=== PATIENT | female | born 1960 | race Hispanic/Latino ===

== ENCOUNTER 2022-06-21 08:16 | Emergency (ER) | payer OTHER ==
[~2022-06-21] VITALS: Ht 152.4 cm; Wt 67.4 kg
[2022-06-21] VITALS (11 sets, daily range): BP systolic 134–159; BP diastolic 57–76
[2022-06-21] MEDS ORDERED: TRAMADOL HYDROC50 M1 PO (10:28)
== END 2022-06-21 10:52 | disposition home or self-care (01) | DRG 556 ==
LOC: ED 08:16
DX: M25.562 Pain in left knee (principal); M25.552 Pain in left hip; E11.9 Type 2 diabetes mellitus without complications; Z79.84 Long term (current) use of oral hypoglycemic drugs; I10 Essential (primary) hypertension